=== PATIENT | male | born 1980 | race Caucasian/White ===

== ENCOUNTER 2020-11-13 18:37 | Emergency (ER) | payer SELFPAY ==
[2020-11-13 18:45] VITALS: BP 134/74; PULSE 80; RESP 20; TEMP 37.1; O2SAT 95
--- NOTE | 2020-11-13 18:49 | ED.UPPEXIN ---
HPI - Extremity Injury (Upper) General Chief Complaint: Extremity Problem,Nontraumatic Stated Complaint: pain in both arms Time Seen by Provider: 11/13/20 18:49 Source: patient Mode of arrival: ambulatory Limitations: no limitations History of Present Illness HPI narrative: 40-year-old man with a history of bilateral carpal tunnel syndrome comes in today complaining of increased pain of his forearms and paresthesias in his hands. Patient denies any new injury or provocation. He states that currently takes ibuprofen, Tylenol, gabapentin and his pain is not controlled such that it wakes him up at night. Diagnosis was confirmed with nerve conduction studies 5 months ago. He is scheduled to have surgery 3 weeks from now. complaint: injury to: left, right, forearm, wrist and hand Onset (ago): week(s) Other injuries: none Relieving factors: none Exacerbating factors: none Associated symptoms: denies other symptoms Treatments prior to arrival: NSAIDS Related Data Home Medications Medication Instructions Recorded Confirmed gabapentin 1,200 mg PO TID 11/13/20 11/13/20 Allergies Allergy/AdvReac Type Severity Reaction Status Date / Time amoxicillin Allergy Hives Verified 11/13/20 18:49 tramadol [From Ultram] Allergy Unknown Verified 11/13/20 18:49 Review of Systems Constitutional: Constitutional: Denies chills and Denies fever(s) Eyes: Eyes: Denies change in vision and Denies photophobia ENT: Denies nasal congestion and Denies sore throat Cardiovascular: Cardiovascular: Denies chest pain and Denies radiating jaw, neck or arm pain Respiratory: Respiratory: Denies cough and Denies dyspnea Musculoskeletal: Musculoskeletal: Reports arthralgias, Denies joint swelling and Denies muscle cramps Integumentary/Breasts: Skin/Breast: Denies pruritus, Denies erythema and Denies rash Neurologic: Denies vertigo, Denies dizziness and Denies syncope Endocrine: Endocrine: Denies polydipsia and Denies polyuria Hematologic/Lymphatic: Hematologic/Lymphatic: Denies easy bleeding and Denies easy bruising PMFSH Past Medical History Medical History (Updated 11/13/20 @ 19:09 by Sylvester Arredondo MD) Carpal tunnel syndrome, bilateral Social History Social History (Updated 11/13/20 @ 19:09 by Sylvester Arredondo MD) Smoking status: Never smoker Substance use: never Living arrangements: with family Additional living arrangements comments: Travelling for work Exam Const: General: healthy appearing Limitations: no limitations Other: Moderate acute distress Eyes: Conjunctivae: conjunctivae normal Pupils: Equal, round and reactive pupils present EOM: EOMs intact bilaterally Resp: Effort & Inspection: normal respiratory effort and not labored Auscultation: clear to auscultation bilaterally, no rales, no rhonchi and no wheezes Cardio: Rate: regular rate Rhythm: regular rhythm Heart sounds: no murmurs Skin: General skin exam: normal color, no jaundice and no pallor Rashes: no rashes Neuro: General: patient oriented x3, moves all extremities, no focal motor deficits and CN's II-XI intact bilaterally Speech: normal speech Gait exam (Neuro): Normal gait present Other: Normal strength of apposition of the thumbs to the little and index fingers bilaterally. Extrem: General: normal to inspection and no clubbing, cyanosis or edema Psych: Appearance: grossly normal and well kempt Mental Status: mental status grossly normal Affect: normal affect Attitude: cooperative Thought content: Yes Normal thought content present Course Vital Signs Vital signs: Vital Signs Temperature 37.1 C 11/13/20 18:45 Pulse Rate 80 11/13/20 18:45 Respiratory Rate 20 11/13/20 18:45 Blood Pressure 134/74 11/13/20 18:45 Pulse Oximetry 95 11/13/20 18:45 Temperature 37.1 C 11/13/20 18:45 Pulse Rate 80 11/13/20 18:45 Respiratory Rate 20 11/13/20 18:45 Blood Pressure 134/74 11/13/20 18:45 Pulse Oxime
== END 2020-11-13 19:08 | disposition home or self-care (01) ==
PROVIDERS: Emergency Provider Emergency Medicine
DX: G56.03 Carpal tunnel syndrome, bilateral upper limbs (principal)
CPT/HCPCS: 99283